=== PATIENT | female | born 1970 | race Caucasian/White ===

== ENCOUNTER 2024-05-09 23:01 | Emergency (ER) | payer OTHER ==
[2024-05-09 23:12] VITALS: BP 122/68; PULSE 74; RESP 16; TEMP 98.1; BMI 22.5
[2024-05-09] MEDS ORDERED: IBUPROFEN 600 MG TABLET (FP) PO ONE (23:16)
[2024-05-09] MEDS: IBUPROFEN 600 MG TABLET (FP) PO ONE (23:19)
== END 2024-05-10 01:07 | disposition home or self-care (01) ==
LOC: FER 23:01
PROC: 2W3SX1Z Immobilization of Right Foot using Splint (ICD-10-PCS; principal; 2024-05-09)
DX: S82.831A Other fracture of upper and lower end of right fibula, initial encounter for closed fracture (principal); X50.1XXA Overexertion from prolonged static or awkward postures, initial encounter; Y93.01 Activity, walking, marching and hiking
CPT/HCPCS: 73590-TC-RT-FY; 73610-TC-RT-FY; 73630-TC-RT-FY; 99283-25

== ENCOUNTER 2024-05-17 06:40 | Day surgery (SDC) | payer OTHER ==
[2024-05-12 13:47] VITALS: BMI 22.8
[2024-05-17] MEDS ORDERED: PROPOFOL 20 ML ONE (07:03)
[2024-05-17] MEDS ORDERED: MIDAZOLAM HCL 2 MG/2 ML SINGLE DOSE VIAL ONE (07:03)
[2024-05-17] MEDS ORDERED: ONDANSETRON 4 MG/2 ML VIAL ONE (07:04)
[2024-05-17] MEDS ORDERED: KETOROLAC TROMETHAMINE 30 MG/1 ML VIAL ONE (07:04)
[2024-05-17] MEDS ORDERED: DEXAMETHASONE SOD PHOSPHATE 4 MG/1 ML VIAL ONE (07:04)
[2024-05-17] MEDS ORDERED: LIDOCAINE HCL/PF 2% SDV 5ML VIAL ONE (07:04)
[2024-05-17] MEDS ORDERED: ACETAMINOPHEN 325 MG TABLET (FP) PO PRN (07:14)
[2024-05-17] MEDS ORDERED: oxyCODONE HCL 5 MG TABLET PO PRN (07:14)
[2024-05-17] MEDS ORDERED: ONDANSETRON 4 MG/2 ML VIAL IVPUSH PRN (07:14)
[2024-05-17] MEDS ORDERED: LACTATED RINGERS SOLUTION 1,000 ML IV SCH (07:15)
[2024-05-17] MEDS ORDERED: ACETAMINOPHEN INJECTION 100 ML ONE (07:18)
[2024-05-17] MEDS ORDERED: BUPIVACAINE HCL/PF 0.5% (5 MG/ML) 30 ML VIAL IJ ONE (07:18)
[2024-05-17] MEDS ORDERED: DEXAMETHASONE SOD PHOSPHATE 10 MG/1 ML VIAL ONE (07:18)
[2024-05-17] MEDS ORDERED: BUPIVACAINE HCL/PF 0.25% (2.5MG/ML) 10 ML VIAL ONE (09:07)
[2024-05-17] MEDS ORDERED: TRANEXAMIC ACID 1000 MG/10 ML VIAL ONE (09:09)
[2024-05-17 10:39] VITALS: RESP 18; TEMP 97.4
[2024-05-17 11:58] VITALS: BP 116/80; PULSE 70
== END 2024-05-17 11:58 | disposition home or self-care (01) ==
LOC: FASU 06:40
PROVIDERS: ATTEND Orthopaedic Surgery Sports Medicine
PROC: 0QSJ04Z Reposition Right Fibula with Internal Fixation Device, Open Approach (ICD-10-PCS; principal; 2024-05-17 08:32)
DX: S82.841A Displaced bimalleolar fracture of right lower leg, initial encounter for closed fracture (principal); X58.XXXA Exposure to other specified factors, initial encounter; Y93.9 Activity, unspecified; Y92.9 Unspecified place or not applicable
CPT/HCPCS: 27814; C1713; 73610-TC-RT-FY; 81025; 94760; J0131; J1100